=== PATIENT | female | born 1990 | race Caucasian/White ===

== ENCOUNTER 2021-04-22 18:19 | Emergency (ER) | payer SELFPAY ==
[~2021-04-22] VITALS: Ht 165.1 cm; Wt 70.8 kg
== END 2021-04-22 21:00 | disposition home or self-care (01) ==
LOC: ED 18:19
DX: S41.012A Laceration without foreign body of left shoulder, initial encounter (principal); W22.8XXA Striking against or struck by other objects, initial encounter; F17.200 Nicotine dependence, unspecified, uncomplicated; Z88.1 Allergy status to other antibiotic agents; Z23 Encounter for immunization
CPT/HCPCS: 90471; 90715; 99282-25